=== PATIENT | female | born 1980 | race American Indian/Alaskan Native ===

== ENCOUNTER 2018-06-12 16:21 | Emergency (ER) | payer MEDICAID ==
[~2018-06-12] VITALS: Ht 177.8 cm; Wt 70.0 kg
[~2018-06-12 16:21] MED LIST: ACET-2119 PO; LACT1CAP26 PO; LEVO750T46 PO; PANT40TA4 PO
[2018-06-12 16:29] VITALS: BP 117/70
[2018-06-12] MEDS ORDERED: ACET-2119 PO (18:10)
[2018-06-12] MEDS ORDERED: ketorolac tromethamine 15mg/ml inj. IM ONE (18:10)
== END 2018-06-12 18:23 | disposition home or self-care (01) ==
LOC: ER 16:22
DX: S39.012A Strain of muscle, fascia and tendon of lower back, initial encounter (principal); G89.29 Other chronic pain; F12.90 Cannabis use, unspecified, uncomplicated; Z98.890 Other specified postprocedural states; Z88.1 Allergy status to other antibiotic agents; Z88.5 Allergy status to narcotic agent; Z79.899 Other long term (current) drug therapy; Z56.0 Unemployment, unspecified; X58.XXXA Exposure to other specified factors, initial encounter; Y93.89 Activity, other specified; Y92.89 Other specified places as the place of occurrence of the external cause; Y99.8 Other external cause status
CPT/HCPCS: 96372; 99283; J1885

== ENCOUNTER 2019-05-17 16:46 | Emergency (ER) | payer MEDICAID ==
[~2019-05-17] VITALS: Ht 175.3 cm; Wt 90.0 kg
[2019-05-17 16:51] VITALS: BP 121/84
[2019-05-17] MEDS ORDERED: IBUP-1984 PO (18:03)
[2019-05-17] MEDS ORDERED: DOXY100C43 PO (18:03)
== END 2019-05-17 18:27 | disposition home or self-care (01) ==
LOC: ER 16:47
DX: K04.7 Periapical abscess without sinus (principal); G89.29 Other chronic pain; F41.9 Anxiety disorder, unspecified; F10.99 Alcohol use, unspecified with unspecified alcohol-induced disorder; F12.90 Cannabis use, unspecified, uncomplicated; Z87.442 Personal history of urinary calculi; Z98.890 Other specified postprocedural states; Z56.0 Unemployment, unspecified; Z88.1 Allergy status to other antibiotic agents; Z79.899 Other long term (current) drug therapy; Y90.9 Presence of alcohol in blood, level not specified
CPT/HCPCS: 99283

== ENCOUNTER 2019-07-24 13:35 | Emergency (ER) | payer MEDICAID ==
[~2019-07-24] VITALS: Ht 180.3 cm; Wt 85.0 kg
[2019-07-24 13:43] VITALS: BP 108/69
[2019-07-24] MEDS ORDERED: LIDOcaine 1% W/epiNEPHrine 1:200,000 10ml vial IJ ONE (15:50)
[2019-07-24] MEDS ORDERED: ibuprofen tablet 400 MG TABLET PO ONE (15:55)
[2019-07-24] MEDS ORDERED: DOXY100C43 PO (16:28)
== END 2019-07-24 17:17 | disposition home or self-care (01) ==
LOC: ER 13:35
DX: L02.415 Cutaneous abscess of right lower limb (principal); G89.29 Other chronic pain; F41.9 Anxiety disorder, unspecified; F12.90 Cannabis use, unspecified, uncomplicated; Z72.89 Other problems related to lifestyle; Z87.442 Personal history of urinary calculi; Z98.890 Other specified postprocedural states; Z56.0 Unemployment, unspecified; Z88.1 Allergy status to other antibiotic agents; Z88.5 Allergy status to narcotic agent; Z79.899 Other long term (current) drug therapy
CPT/HCPCS: 10060; 99283

== ENCOUNTER 2020-10-15 12:01 | Emergency (ER) | payer MEDICAID ==
[~2020-10-15] VITALS: Ht 177.8 cm; Wt 81.8 kg
[~2020-10-15 12:01] MED LIST changes: -PANT40TA4 PO; +PANT40TA54 PO
[2020-10-15] MEDS ORDERED: ibuprofen tablet 400 MG TABLET PO ONE (13:35)
[2020-10-15 14:02] LABS: BASOPHILS # (AUTO) 0.1 X10'3 (0-0.2); BASOPHILS % (AUTO) 0.8 % (0-1); EOSINOPHILS # (AUTO) 0.3 X10'3 (0-0.9); EOSINOPHILS % (AUTO) 4.1 % (0-6); HEMATOCRIT 35.5 % (35.0-45.0); HEMOGLOBIN 11.5 g/dl (12.0-16.0); LYMPHOCYTES # (AUTO) 2.5 X10'3 (1.1-4.8); MEAN CORPUSCULAR HEMOGLOBIN 28.5 PG (27.0-31.0); MEAN CORPUSCULAR HGB CONC 32.4 g/dL (33.0-36.5); MEAN CORPUSCULAR VOLUME 87.9 FL (78-98); MEAN PLATELET VOLUME 7.6 FL (7.4-10.4); MONOCYTES # (AUTO) 0.5 X10'3 (0-0.9); MONOCYTES % (AUTO) 8.2 % (2-12); NEUTROPHILS # (AUTO) 3.2 X10'3 (1.8-7.7); NEUTROPHILS % (AUTO) 48.9 % (42-75); PLATELET COUNT 434 X10'3 (140-440); RED BLOOD COUNT 4.04 X10'6 (4.20-5.60); RED CELL DISTRIBUTION WIDTH 13.7 % (11.5-14.5); WHITE BLOOD COUNT 6.6 X10'3 (4.5-11.0)
[2020-10-15 14:16] LABS: ALANINE AMINOTRANSFERASE 19 U/L (12-78); ALBUMIN 3.1 G/DL (3.4-5.0); ALBUMIN/GLOBULIN RATIO 0.7 (1.1-1.5); ALKALINE PHOSPHATASE 132 IU/L (46-116); ANION GAP 8 (8-16); ASPARTATE AMINO TRANSFERASE 22 U/L (10-37); BILIRUBIN,TOTAL 0.2 MG/DL (0.1-1.0); BLOOD UREA NITROGEN 13 MG/DL (7-18); BUN/CREATININE RATIO 15.9 (6.6-38.0); C-REACTIVE PROTEIN 1.66 MG/DL (0.0-0.5); CALCIUM 8.6 MG/DL (8.5-10.1); CHLORIDE 104 MMOL/L (99-107); CREATININE 0.82 MG/DL (0.40-0.90); GLUCOSE 109 MG/DL (70-104); POTASSIUM 3.9 MMOL/L (3.5-5.1); SODIUM 139 MMOL/L (135-145); TOTAL CARBON DIOXIDE 27.4 MMOL/L (24-32); TOTAL PROTEIN 7.6 G/DL (6.4-8.2); eGFR 77 ML/MIN
[2020-10-15 14:59] VITALS: BP 109/72
[2020-10-15] MEDS ORDERED: SULF1TAB49 PO (15:10)
[2020-10-15] MEDS ORDERED: IBUP-1985 PO (15:10)
== END 2020-10-15 15:20 | disposition home or self-care (01) ==
LOC: ER 12:02
DX: M79.642 Pain in left hand (principal); R22.32 Localized swelling, mass and lump, left upper limb; G89.29 Other chronic pain; F41.9 Anxiety disorder, unspecified; F12.90 Cannabis use, unspecified, uncomplicated; Z87.442 Personal history of urinary calculi; Z72.89 Other problems related to lifestyle; Z56.0 Unemployment, unspecified; Z98.890 Other specified postprocedural states; Z88.1 Allergy status to other antibiotic agents; Z79.899 Other long term (current) drug therapy
CPT/HCPCS: 36415; 73130; 80053; 83605; 85025; 85651; 86140; 87040; 99284

== ENCOUNTER 2021-01-18 21:50 | Emergency (ER) | payer MEDICAID ==
[~2021-01-18] VITALS: Ht 177.8 cm; Wt 84.1 kg
[~2021-01-18 21:50] MED LIST changes: +IBUP-1985 PO
[2021-01-18 23:02] LABS: CLARITY,URINE CLEAR (Clear); COLOR,URINE YELLOW (Yellow); GLUCOSE, URINE NEGATIVE (Neg); KETONES,URINE NEGATIVE (Neg); LEUKOCYTE ESTERASE ,URINE NEGATIVE (Neg); NITRITES, URINE NEGATIVE (Neg); OCCULT BLOOD,URINE NEGATIVE (Neg); PH,URINE 5.5 (4.8-8.0); PROTEIN,URINE NEGATIVE (Neg); URINE HCG NEGATIVE (NEG); UROBILINOGEN,URINE 0.2 E.U/dL (0.2-1.0)
[2021-01-18 23:03] LABS: UA COLLECTION TYPE NON-SPECIFIED
[2021-01-19 00:46] VITALS: BP 101/45
[2021-01-19] MEDS ORDERED: CLOT45CR29 TOP (00:46)
[2021-01-19] MEDS ORDERED: DOXY100C76 PO (00:46)
== END 2021-01-19 01:40 | disposition home or self-care (01) ==
LOC: ER 21:50
DX: N89.8 Other specified noninflammatory disorders of vagina (principal); G89.29 Other chronic pain; F41.9 Anxiety disorder, unspecified; F12.90 Cannabis use, unspecified, uncomplicated; Z87.11 Personal history of peptic ulcer disease; Z87.442 Personal history of urinary calculi; Z98.890 Other specified postprocedural states; Z72.89 Other problems related to lifestyle; Z56.0 Unemployment, unspecified; Z88.1 Allergy status to other antibiotic agents; Z88.8 Allergy status to other drugs, medicaments and biological substances; Z79.2 Long term (current) use of antibiotics; Z79.899 Other long term (current) drug therapy
CPT/HCPCS: 36415; 81003; 81025; 87491; 99283

== ENCOUNTER 2022-02-11 10:21 | Inpatient (IN) | payer MEDICAID ==
[~2022-02-11] VITALS: Ht 177.8 cm; Wt 79.5 kg
[2022-02-11] VITALS (11 sets, daily range): BP systolic 121–154; BP diastolic 62–91
[~2022-02-11 10:21] MED LIST changes: +CLOT45CR29 TOP; -LEVO750T46 PO; +LEVO750T68 PO
[2022-02-11 12:51] LABS: ALANINE AMINOTRANSFERASE 25 U/L (12-78); ALBUMIN/GLOBULIN RATIO 0.9 (1.1-1.5); ALKALINE PHOSPHATASE 120 IU/L (46-116); ANION GAP 8 (8-16); ASPARTATE AMINO TRANSFERASE 29 U/L (10-37); BASOPHILS % (AUTO) 0.4 % (0-1); BILIRUBIN,TOTAL 0.5 MG/DL (0.1-1.0); BLOOD UREA NITROGEN 11 MG/DL (7-18); BUN/CREATININE RATIO 12.5 (6.6-38.0); CALCIUM 9.3 MG/DL (8.5-10.1); CHLORIDE 103 MMOL/L (99-107); CREATININE 0.88 MG/DL (0.40-0.90); EOSINOPHILS # (AUTO) 0.1 X10'3 (0-0.9); EOSINOPHILS % (AUTO) 0.7 % (0-6); GLUCOSE 115 MG/DL (70-104); HEMATOCRIT 39.8 % (35.0-45.0); HEMOGLOBIN 13.5 g/dl (12.0-16.0); LIPASE 62 U/L (73-393); LYMPHOCYTES % (AUTO) 10.4 % (21-51); MEAN CORPUSCULAR HEMOGLOBIN 30.1 PG (27.0-31.0); MEAN CORPUSCULAR HGB CONC 33.9 g/dL (33.0-36.5); MEAN CORPUSCULAR VOLUME 88.7 FL (78-98); MONOCYTES # (AUTO) 0.4 X10'3 (0-0.9); NEUTROPHILS # (AUTO) 7.7 X10'3 (1.8-7.7); NEUTROPHILS % (AUTO) 84.5 % (42-75); PLATELET COUNT 321 X10'3 (140-440); POTASSIUM 3.9 MMOL/L (3.5-5.1); RED BLOOD COUNT 4.49 X10'6 (4.20-5.60); RED CELL DISTRIBUTION WIDTH 13.5 % (11.5-14.5); SODIUM 138 MMOL/L (135-145); TOTAL CARBON DIOXIDE 27.1 MMOL/L (24-32); TOTAL PROTEIN 8.5 G/DL (6.4-8.2); WHITE BLOOD COUNT 9.2 X10'3 (4.5-11.0); eGFR 71 ML/MIN
[2022-02-11] MEDS ORDERED: ondansetron/PF 4mg/2ml inj IV ONE (14:05)
[2022-02-11] MEDS ORDERED: ketorolac trometh. 30mg/ml inj. IM ONE (14:05)
[2022-02-11] MEDS ORDERED: ringers solution, lactated 1000ml IV soln IV ONE (14:05)
[2022-02-11] MEDS ORDERED: LIDOcaine Viscous 15ml cup MM PRN (14:10)
[2022-02-11] MEDS ORDERED: mag hydrox/Alum hydrox/simeth 30ml oral suspension PO ONE (14:10)
[2022-02-11] MEDS ORDERED: famotidine/PF 10 mg/ml inj IV ONE (14:20)
[2022-02-11] MEDS: diatr meglu/diatrizoate 30ml oral sol.-(3 dose) bottle PO SCH ×3 (15:00→16:19)
[2022-02-11] MEDS ORDERED: iohexol 350MG/ML 100ml bottle IV ONE (15:40)
[2022-02-11] MEDS ORDERED: morphine 4 MG/ML inj SYRINge IV ONE (17:10)
[2022-02-11] MEDS ORDERED: CefTRIAXone/D5W-Rocephin 1gm 50 ML IV ONE (17:15)
[2022-02-11 18:25] LABS: BASOPHILS % (AUTO) 0.1 % (0-1); EOSINOPHILS % (AUTO) 0.1 % (0-6); HEMATOCRIT 38.4 % (35.0-45.0); HEMOGLOBIN 12.9 g/dl (12.0-16.0); LYMPHOCYTES # (AUTO) 0.8 X10'3 (1.1-4.8); LYMPHOCYTES % (AUTO) 5.9 % (21-51); MEAN CORPUSCULAR HEMOGLOBIN 29.7 PG (27.0-31.0); MEAN CORPUSCULAR HGB CONC 33.6 g/dL (33.0-36.5); MEAN CORPUSCULAR VOLUME 88.4 FL (78-98); MEAN PLATELET VOLUME 7.9 FL (7.4-10.4); MONOCYTES # (AUTO) 0.4 X10'3 (0-0.9); MONOCYTES % (AUTO) 3.2 % (2-12); NEUTROPHILS # (AUTO) 12.3 X10'3 (1.8-7.7); NEUTROPHILS % (AUTO) 90.7 % (42-75); PLATELET COUNT 298 X10'3 (140-440); RED BLOOD COUNT 4.34 X10'6 (4.20-5.60); RED CELL DISTRIBUTION WIDTH 13.5 % (11.5-14.5); WHITE BLOOD COUNT 13.6 X10'3 (4.5-11.0)
[2022-02-11] MEDS ORDERED: BUPIVAcaine/PF 2.5 mg/ml (0.25%) 30ml vial ONE (18:47)
[2022-02-11] MEDS ORDERED: proCHLORperazine 10 MG/2 ml inj IV PRN (18:50)
[2022-02-11] MEDS ORDERED: morphine 4 MG/ML inj SYRINge IV PRN (18:50)
[2022-02-11] MEDS ORDERED: morphine 2 MG/ML inj. syringe IV PRN (18:50)
[2022-02-11] MEDS ORDERED: ondansetron/PF 4mg/2ml inj IV PRN ×3 (18:50→20:50)
[2022-02-11] MEDS ORDERED: ringers solution, lacted 1,000 ML IV SCH (18:50)
[2022-02-11] MEDS ORDERED: meperidine/PF 25mg/ml syringe IV PRN ×3 (18:50)
[2022-02-11] MEDS ORDERED: POTASSIUM BICARB 20meq eff tab 20 MEQ TABLET.EFF PO PRN ×2 (18:55)
[2022-02-11] MEDS ORDERED: potassium CL 10mEq/100ml bag 100 ML IV PRN (18:55)
[2022-02-11] MEDS ORDERED: magnesium 2GM in 50ml NS 50 ML IV PRN (18:55)
[2022-02-11] MEDS ORDERED: acetaminophen 325mg tablet PO PRN (18:55)
[2022-02-11] MEDS ORDERED: magnesium hydroxide 30ml (MOM) UD suspension PO PRN (18:55)
[2022-02-11] MEDS ORDERED: magnesium 4gm in 100ml NS 100 ML IV PRN (18:55)
[2022-02-11] MEDS ORDERED: mag hydrox/Alum hydrox/simeth 30ml oral suspension PO PRN (18:55)
[2022-02-11] MEDS ORDERED: fentaNYL /PF 50mcg/ml 5ml ampule ONE (19:00)
[2022-02-11] MEDS: docusate sod 100mg capsule PO SCH (20:00)
[2022-02-11] MEDS: enoxaparin 40mg/0.4ml syringe SQ SCH (20:00)
[2022-02-11] MEDS: K and/or MAG REPLACEMENT MC SCH (20:00)
[2022-02-11] MEDS ORDERED: famotidine/PF IV inj 40 MG in normal saline 100ml IV soln 100 ML IV SCH (20:00)
[2022-02-11] MEDS ORDERED: dexamethasone sod phosphate 4mg/ml inj. ONE (20:21)
[2022-02-11] MEDS ORDERED: LIDOcaine 2% (20mg/ml) 5ml vial ONE (20:21)
[2022-02-11] MEDS ORDERED: rocuronium 10mg/ml inj IV ONE (20:21)
[2022-02-11] MEDS ORDERED: ondansetron/PF 4mg/2ml inj ONE (20:21)
[2022-02-11] MEDS ORDERED: neostigmine methylsulfate 1 MG/ML 10ml vial ONE (20:21)
[2022-02-11] MEDS ORDERED: glycopyrrolate 0.2mg/ml inj ONE (20:21)
[2022-02-11] MEDS ORDERED: propofol inj 20 ML IV ONE (20:21)
[2022-02-11] MEDS ORDERED: meperidine/PF 25mg/ml syringe ONE ×2 (20:25→20:36)
--- NOTE | 2022-02-11 20:43 | NUR ---
Received from OR via ORTHO BED , accompanied by Anesthesiologist BRISEYDA and report given by Anesthesiolgist. PATIENT WITH 4 ABDOMINAL BANDAIDS PRESENT THAT ARE ALL CDI CURRENTLY. VSS. 10L MASK ON WITH 100% SATURATIONS. 10L . 20GPIV IN LEFT NECK RUNNING LR AT 100. WARM BLANKETS APPLIED FOR PATIENT COMFORT. Addendum: 02/11/22 at 2100 by Johann Barros RN, RN Amended: Links added.
[2022-02-11] MEDS ORDERED: sugammadex 200mg/2ml injection IV ONE (20:46)
[2022-02-11] MEDS ORDERED: naloxone 0.4 mg/ml inj IV PRN (20:50)
--- NOTE | 2022-02-11 21:43 | NUR ---
TRANSFER: CARE OF PATIENT AND REPORT HAS BEEN CALLED. ALL QUESTIONS ANSWERED TO ACCEPTING RN. PATIENT HAS MET ALL CRITERIA FOR TRANSFER TO THE [facility]. VSS. DRESSINGS INTACT. BED LOW, CALL LIGHT PRESENT AND 2 RAILS UP. RIOS GERARD PRESENT TO ACCEPT ASSIST IN SET UP AND TO PERFORM HER ASSESSMENT ON THIS PATIENT. CARE TURNED OVER. ONE BLUE BLANKET PLACED IN ROOM WELL. Addendum: 02/11/22 at 2150 by Johann Muhammad - RIOS NATION Amended: Links added.
[2022-02-11] MEDS ORDERED: METH-603 PO (22:23)
[2022-02-12] VITALS (8 sets, daily range): BP systolic 88–127; BP diastolic 47–74
[2022-02-12] MEDS: metroNIDAZOLE-Flagyl 500mg/NS 100 ML IV SCH ×4 (00:03→23:46)
[2022-02-12] MEDS: normal saline 1000ml 1,000 ML IV SCH ×3 (00:09→15:53)
[2022-02-12] MEDS: HYDROcodone/acetaminophen 10/325mg tab PO PRN ×4 (02:07→23:47)
[2022-02-12] MEDS: ketorolac trometh. 30mg/ml inj. IV PRN ×3 (04:28→19:17)
[2022-02-12 05:03] LABS: URINE AMPHETAMINE SCREEN POSITIVE (Neg); URINE BARBITUATE SCREEN NEGATIVE (Neg); URINE BENZODIAZEPINES SCREEN NEGATIVE (Neg); URINE CANNABINOID SCREEN POSITIVE (Neg); URINE COCAINE SCREEN NEGATIVE (Neg); URINE METHADONE SCREEN POSITIVE (Neg); URINE OPIATE SCREEN POSITIVE (Neg); URINE PHENCYCLIDINE SCREEN NEGATIVE (Neg)
[2022-02-12 05:07] LABS: CLARITY,URINE CLEAR (Clear); GLUCOSE, URINE NEGATIVE (Neg); KETONES,URINE 15 mg/dl (Neg); LEUKOCYTE ESTERASE ,URINE NEGATIVE (Neg); NITRITES, URINE NEGATIVE (Neg); OCCULT BLOOD,URINE SMALL (Neg); PH,URINE 6.5 (4.8-8.0); PROTEIN,URINE TRACE mg/dl (Neg)
[2022-02-12 05:11] LABS: UA COLLECTION TYPE FOLEY CATH
[2022-02-12 05:12] LABS: COLOR,URINE AMBER (Yellow)
[2022-02-12 05:15] LABS: MUCUS STRANDS MODERATE /LPF (Neg); SQUAMOUS EPITHELIAL CELL,UR FEW /LPF (FEW)
[2022-02-12 05:16] LABS: BACTERIA,URINE NONE SEEN /HPF (Neg); WBC,URINE 0-4 /HPF (0-4)
--- NOTE | 2022-02-12 06:43 | NUR ---
Problems reprioritized. Patient report given, questions answered & plan of care reviewed with RIOS MOYA.
--- NOTE | 2022-02-12 07:03 | NUR ---
Patient in room ORTHO 4013. I have received report from laura NATION and had the opportunity to ask questions and assume patient care.
[2022-02-12 07:11] LABS: BASOPHILS % (AUTO) 0.1 % (0-1); EOSINOPHILS % (AUTO) 0 % (0-6); HEMOGLOBIN 10.9 g/dl (12.0-16.0); LYMPHOCYTES # (AUTO) 0.5 X10'3 (1.1-4.8); LYMPHOCYTES % (AUTO) 3.7 % (21-51); MEAN CORPUSCULAR HEMOGLOBIN 30.1 PG (27.0-31.0); MEAN CORPUSCULAR HGB CONC 34.1 g/dL (33.0-36.5); MEAN CORPUSCULAR VOLUME 88.4 FL (78-98); MONOCYTES # (AUTO) 0.5 X10'3 (0-0.9); MONOCYTES % (AUTO) 3.7 % (2-12); NEUTROPHILS # (AUTO) 13.6 X10'3 (1.8-7.7); NEUTROPHILS % (AUTO) 92.5 % (42-75); PLATELET COUNT 265 X10'3 (140-440); RED BLOOD COUNT 3.62 X10'6 (4.20-5.60); RED CELL DISTRIBUTION WIDTH 13.6 % (11.5-14.5); WHITE BLOOD COUNT 14.7 X10'3 (4.5-11.0)
[2022-02-12 07:30] LABS: ALANINE AMINOTRANSFERASE 27 U/L (12-78); ALBUMIN 2.8 G/DL (3.4-5.0); ALBUMIN/GLOBULIN RATIO 0.8 (1.1-1.5); ALKALINE PHOSPHATASE 86 IU/L (46-116); ANION GAP 9 (8-16); ASPARTATE AMINO TRANSFERASE 33 U/L (10-37); BILIRUBIN,TOTAL 0.5 MG/DL (0.1-1.0); BLOOD UREA NITROGEN 10 MG/DL (7-18); BUN/CREATININE RATIO 13.5 (6.6-38.0); CALCIUM 7.9 MG/DL (8.5-10.1); CHLORIDE 106 MMOL/L (99-107); CREATININE 0.74 MG/DL (0.40-0.90); GLUCOSE 132 MG/DL (70-104); MAGNESIUM 1.6 MG/DL (1.5-2.4); SODIUM 139 MMOL/L (135-145); TOTAL CARBON DIOXIDE 23.7 MMOL/L (24-32); TOTAL PROTEIN 6.2 G/DL (6.4-8.2); eGFR 86 ML/MIN
[2022-02-12] MEDS: docusate sod 100mg capsule PO SCH ×2 (07:42→19:16)
[2022-02-12] MEDS: nicotine 21mg patch - 24 hr TD SCH (07:43)
[2022-02-12] MEDS: K and/or MAG REPLACEMENT MC SCH ×2 (08:00→20:00)
--- NOTE | 2022-02-12 09:39 | NUR ---
PATIENT STATES SHE TAKES METHADONE 100MG AT [facility]. LAST DOSE PER PT WAS 2 DAYS AGO. CALLED CLINIC AND VERIFIED LAST DOSE WAS 100MG ON 02/10. PAGE SENT TO DR NORRIS FOR MED RECONCILIATION.
--- NOTE | 2022-02-12 12:31 | NUR ---
patient given incentive spirometer. Educated and encouraged to use 10x/hr. Verbalized understanding. Will continue to monitor.
[2022-02-12] MEDS: methadone 10mg tablet PO SCH (13:47)
[2022-02-12] MEDS ORDERED: DOL10T PO (16:57)
--- NOTE | 2022-02-12 17:31 | NUR ---
patient was medicated with methadone see EMAR. Ambulating in hallway increased to full lqd diet and advance as tolerated per Dr andre.
--- NOTE | 2022-02-12 17:45 | NUR ---
patient very pleasant throughout shift. tolerating clear liquid diet without issues. advanced to full liquid diet for dinner per order. denies nausea. ambulated around the unit twice today. encouraged to use incentive spirometer. pain controlled with prn per orders. urinated in toilet x 4 today. visiting most of day.
[2022-02-12] MEDS ORDERED: CefTRIAXone/D5W-Rocephin 1gm 50 ML IV SCH (18:00)
--- NOTE | 2022-02-12 18:21 | NUR ---
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
[2022-02-12] MEDS: enoxaparin 40mg/0.4ml syringe SQ SCH (19:16)
[2022-02-13] MEDS: normal saline 1000ml 1,000 ML IV SCH ×2 (04:15→10:55)
[2022-02-13] MEDS: ketorolac trometh. 30mg/ml inj. IV PRN ×2 (04:38→14:16)
[2022-02-13 06:12] LABS: BASOPHILS % (AUTO) 0.4 % (0-1); EOSINOPHILS % (AUTO) 0.7 % (0-6); HEMATOCRIT 28.1 % (35.0-45.0); HEMOGLOBIN 9.3 g/dl (12.0-16.0); LYMPHOCYTES # (AUTO) 1.5 X10'3 (1.1-4.8); LYMPHOCYTES % (AUTO) 22.5 % (21-51); MEAN CORPUSCULAR HEMOGLOBIN 29.8 PG (27.0-31.0); MEAN CORPUSCULAR VOLUME 90.1 FL (78-98); MEAN PLATELET VOLUME 8.3 FL (7.4-10.4); MONOCYTES # (AUTO) 0.6 X10'3 (0-0.9); MONOCYTES % (AUTO) 8.4 % (2-12); NEUTROPHILS # (AUTO) 4.6 X10'3 (1.8-7.7); PLATELET COUNT 198 X10'3 (140-440); RED BLOOD COUNT 3.12 X10'6 (4.20-5.60); RED CELL DISTRIBUTION WIDTH 13.8 % (11.5-14.5); WHITE BLOOD COUNT 6.8 X10'3 (4.5-11.0)
--- NOTE | 2022-02-13 06:47 | NUR ---
Problems reprioritized. Patient report given, questions answered & plan of care reviewed with RIOS CALDERON.
[2022-02-13 06:56] LABS: ALANINE AMINOTRANSFERASE 23 U/L (12-78); ALBUMIN 2.5 G/DL (3.4-5.0); ALBUMIN/GLOBULIN RATIO 0.8 (1.1-1.5); ALKALINE PHOSPHATASE 69 IU/L (46-116); ANION GAP 11 (8-16); ASPARTATE AMINO TRANSFERASE 26 U/L (10-37); BILIRUBIN,TOTAL 0.3 MG/DL (0.1-1.0); BLOOD UREA NITROGEN 11 MG/DL (7-18); BUN/CREATININE RATIO 16.2 (6.6-38.0); CALCIUM 7.8 MG/DL (8.5-10.1); CHLORIDE 110 MMOL/L (99-107); CREATININE 0.68 MG/DL (0.40-0.90); GLUCOSE 88 MG/DL (70-104); MAGNESIUM 1.9 MG/DL (1.5-2.4); POTASSIUM 3.8 MMOL/L (3.5-5.1); SODIUM 143 MMOL/L (135-145); TOTAL CARBON DIOXIDE 22.1 MMOL/L (24-32); TOTAL PROTEIN 5.7 G/DL (6.4-8.2); eGFR > 90 ML/MIN
[2022-02-13 07:30] VITALS: BP 121/57
[2022-02-13] MEDS: K and/or MAG REPLACEMENT MC SCH (08:00)
[2022-02-13] MEDS: nicotine 21mg patch - 24 hr TD SCH (08:24)
[2022-02-13] MEDS: methadone 10mg tablet PO SCH (08:24)
[2022-02-13] MEDS: docusate sod 100mg capsule PO SCH (08:24)
[2022-02-13] MEDS: metroNIDAZOLE-Flagyl 500mg/NS 100 ML IV SCH (08:26)
[2022-02-13] MEDS: HYDROcodone/acetaminophen 10/325mg tab PO PRN (10:34)
[2022-02-13 10:48] VITALS: BP 144/78
[2022-02-13] MEDS ORDERED: NICO-687 TD (11:14)
[2022-02-13] MEDS ORDERED: KETO10TA2 PO (11:14)
--- NOTE | 2022-02-13 15:40 | NUR ---
Patient stable and appropriate for discharge home with SO. IV removed, all belongings taken from room. New RX e-scripted to preferred pharmacy. All discharge instructions and education given and reviewed with patient, all questions answered.
== END 2022-02-13 15:40 | disposition home or self-care (01) | DRG 263 ==
LOC: ER 10:22 → ED HOLD 19:03 → ORTHO 4S 21:49
PROVIDERS: ADMIT Family Medicine; ATTEND Family Medicine
PROC: 0DNW4ZZ Release Peritoneum, Percutaneous Endoscopic Approach (ICD-10-PCS; 2022-02-11)
PROC: BW211ZZ Computerized Tomography (CT Scan) of Abdomen and Pelvis using Low Osmolar Contrast (ICD-10-PCS; 2022-02-11)
PROC: 0FT44ZZ Resection of Gallbladder, Percutaneous Endoscopic Approach (ICD-10-PCS; principal; 2022-02-11 19:05)
DX: K81.0 Acute cholecystitis (principal); D72.829 Elevated white blood cell count, unspecified; F11.90 Opioid use, unspecified, uncomplicated; F17.210 Nicotine dependence, cigarettes, uncomplicated; F43.10 Post-traumatic stress disorder, unspecified; Z20.822 Contact with and (suspected) exposure to COVID-19; M54.9 Dorsalgia, unspecified; G89.29 Other chronic pain; K66.0 Peritoneal adhesions (postprocedural) (postinfection); Z87.11 Personal history of peptic ulcer disease; Z87.442 Personal history of urinary calculi; Z98.891 History of uterine scar from previous surgery; Z88.1 Allergy status to other antibiotic agents; Z88.8 Allergy status to other drugs, medicaments and biological substances; Z56.0 Unemployment, unspecified; Z79.899 Other long term (current) drug therapy
CPT/HCPCS: 36415; 74177; 80053; 80305; 81001; 83605; 83690; 83735; 84145; 84484; 85025; 87040; 87081; 87811; 93005; 96372; 96374; 96375; 99285; A4215; A4314; A4618; A7000; G0378; J0696; J1100; J1650; J1885; J2175; J2270; J2405; J2704; J2710; J3010; J3490; J7030; J7120; Q9967

== ENCOUNTER 2023-01-30 01:37 | Emergency (ER) | payer MEDICAID ==
[~2023-01-30] VITALS: Ht 179.1 cm; Wt 84.8 kg
[~2023-01-30 01:37] MED LIST changes: -ACET-2119 PO; -CLOT45CR29 TOP; +DOL10T PO; -IBUP-1985 PO; +KETO10TA2 PO; -LACT1CAP26 PO; -LEVO750T68 PO; +NICO-687 TD; -PANT40TA54 PO
[2023-01-30 01:57] VITALS: BP 107/74; PULSE 73; RESP 16; TEMP 97.9; O2SAT 100
[2023-01-30] MEDS ORDERED: SULF1TAB49 PO (03:23)
[2023-01-30] MEDS ORDERED: sulfamethoxazole/trimethoprim DS (800/160mg) tablet PO ONE (03:25)
[2023-01-30] MEDS ORDERED: ibuprofen 200mg tablet PO ONE (03:25)
[2023-01-30] MEDS ORDERED: ondansetron 4mg rapidly disintigrating tab PO ONE (03:25)
== END 2023-01-30 03:47 | disposition home or self-care (01) ==
LOC: ER 01:38
DX: L03.011 Cellulitis of right finger (principal); G89.29 Other chronic pain; M54.9 Dorsalgia, unspecified; F41.9 Anxiety disorder, unspecified; Z87.442 Personal history of urinary calculi; F12.10 Cannabis abuse, uncomplicated; Z56.0 Unemployment, unspecified; Z88.0 Allergy status to penicillin; Z88.1 Allergy status to other antibiotic agents; Z88.5 Allergy status to narcotic agent; Z79.899 Other long term (current) drug therapy
CPT/HCPCS: 73140; 99284

== ENCOUNTER 2024-05-20 14:39 | Emergency (ER) | payer MEDICAID ==
[~2024-05-20] VITALS: Ht 177.8 cm; Wt 77.3 kg
[2024-05-20 14:46] VITALS: TEMP 99.5
[2024-05-20 16:58] VITALS: BP 106/77; PULSE 63; O2SAT 100
[2024-05-20] MEDS: LIDOcaine 1% W/epiNEPHrine 1:100,000 20ml vial SQ ONE (17:30)
[2024-05-20] MEDS: sulfamethoxazole/trimethoprim DS (800/160mg) tablet PO ONE (18:07)
[2024-05-20] MEDS: ketorolac trometh 15mg/ml vial 15 MG/ML ML IM ONE (18:08)
[2024-05-20 18:23] VITALS: RESP 16
[2024-05-20] MEDS ORDERED: SULF1TAB49 PO (19:12)
== END 2024-05-20 20:09 | disposition home or self-care (01) ==
LOC: ER 14:40
DX: L02.511 Cutaneous abscess of right hand (principal); G89.29 Other chronic pain; Z88.0 Allergy status to penicillin; Z88.5 Allergy status to narcotic agent; Z87.11 Personal history of peptic ulcer disease; Z98.890 Other specified postprocedural states
CPT/HCPCS: 10060; 73130; 96372; 99283; A6407; J1885; A6258; A6449

== ENCOUNTER 2024-05-23 17:30 | Emergency (ER) | payer MEDICAID ==
[~2024-05-23] VITALS: Ht 177.8 cm; Wt 82.3 kg
[~2024-05-23 17:30] MED LIST changes: +SULF1TAB49 PO
[2024-05-23 17:31] VITALS: BP 144/83; PULSE 104; RESP 16; O2SAT 98
[2024-05-23 17:49] VITALS: TEMP 98.3
== END 2024-05-23 17:53 | disposition home or self-care (01) ==
LOC: ER 17:31
DX: Z48.00 Encounter for change or removal of nonsurgical wound dressing (principal); G89.29 Other chronic pain; M54.9 Dorsalgia, unspecified; Z87.442 Personal history of urinary calculi; F41.9 Anxiety disorder, unspecified; F12.90 Cannabis use, unspecified, uncomplicated; Z88.5 Allergy status to narcotic agent; Z88.1 Allergy status to other antibiotic agents; Z79.899 Other long term (current) drug therapy; Z56.0 Unemployment, unspecified
CPT/HCPCS: 99281

== ENCOUNTER 2025-02-24 18:36 | Emergency (ER) | payer MEDICAID ==
[~2025-02-24] VITALS: Ht 177.8 cm; Wt 97.7 kg
[~2025-02-24 18:36] MED LIST changes: -SULF1TAB49 PO
[2025-02-24 19:00] VITALS: BP 127/77; PULSE 95; RESP 20; TEMP 97.9; O2SAT 100
--- NOTE | 2025-02-26 19:45 | Physician Documentation ---
History of Present Illness ~ Chief Complaint: Abrasion Stated Complaint: INFECTED WOUND ON FINGER Time Seen by MD: 21:24 Primary Medical Doctor: AURELIANO SANCHEZ HPI Patient left before examination results. Medication Reconciliation Allergies: Coded Allergies: amoxicillin (Unverified Allergy, Severe, HIVES, 05/20/24) Erythromycin Lactobionate (Unverified Allergy, Unknown, 05/20/24) hydromorphone (Verified Adverse Reaction, Unknown, 05/20/24) HALLUCINATIONS Scheduled Methadone Hcl (Dolophine), 100 MG PO DAILY, (Reported) Nicotine 21 MG Patch* (Habitrol 21 MG Patch*), 1 PATCH TD DAILY Scheduled PRN Ketorolac Tromethamine (Ketorolac Tromethamine), 1 TAB PO Q8H PRN for moderate pain 4-6 Past Medical History Past Medical History: Bronchitis, Peptic Ulcer Disease, Kidney Stones, Chronic Pain, Chronic Back Pain, *INFECTIOUS DZ*, *PSYCH*, Anxiety Past Surgical History: , orthopedic surgeries Other Past Surgical History: epidural injections in the low spine Patient History: Patient reports no known family medical history. Other Past Family History: none Smoking Status: Unknown if ever smoked Alcohol Use: Sober Drug Use: marijuana Lives with: Family Lives In: Home Occupation: unemployed Review of Systems ROS As stated above in the HPI, otherwise all systems are reviewed and negative. Physical Exam Vital Signs: Temperature: 97.9, Heart Rate: 95, Respiratory Rate: 20, BP: 127/77, Pulse Oximetry: 100, Weight: 97.700 Oxygen Flow Rate: 0 Physical Exam VITALS: Reviewed and as above. GENERAL: Alert, no apparent distress. HEENT: Normocephalic, atraumatic, PERRL, EOMI, dry mucosa, no erythema RESPIRATORY: Lungs clear, normal breath sounds, no respiratory distress. CHEST: No accessory muscle use, no retractions CV: Regular rate, rhythm, no edema, no murmur, No: JVD GI: Soft, non-tender, bowels sounds present, no rebound, guarding, or rigidity BACK: No CVA tenderness, or swelling MUSCULOSKELETAL No deformities, no edema SKIN: Warm and dry, area of erthema and swelling to finger. NEURO: Oriented x4, No motor or sensory deficit PSYCH: Normal mood and affect, no agitation Progress Results/Orders Results/Orders Vital Signs 02/24/25 19:00 Temp 97.9 Pulse 95 Resp 20 B/P (MAP) 127/77 Pulse Ox 100 O2 Flow Rate 0 Medical Decision Making Findings Patient left before examination results. Differential Dx:Considerations: Include: Abscess, AIDS/HIV, Anthrax (cutaneous), Atopic dermatitis, Candidiasis, Contact dermatitis, Drug reaction, Erythema multiforme, Erysipelas, Gangrene, Herpes zoster, Herpes simplex, Hidradenitis suppurativa, Impetigo, Intertrigo, Lymes disease, Molluscum contagiosum, Osteomyelitis, Pediculosis, Pityriasis rosea, Psoriaisis, RMSF, Rosacea, Scabies, Scarlet fever, Tinea, Urticaria, Varicella, Viral exanthema, Other Departure Disposition: 07 LEFT AWOL/ELOPED Impression: Primary Impression: Wound Condition: Stable Discharge Instructions: Abrasion, [id number] Additional Instructions: Patient left before receiving examination results. Referrals: NO PRIMARY CARE PROVIDER (PCP) Signature Scribe Signature: A Attestation: Scribed for Fela Carolina by JULIUS Ordonez . 02/26/25 19:45 FELA CAROLINA Feb 26, 2025 19:45
== END 2025-02-24 21:59 | disposition left against medical advice (07) ==
LOC: ER 18:37
DX: L08.9 Local infection of the skin and subcutaneous tissue, unspecified (principal); Z88.1 Allergy status to other antibiotic agents; Z88.5 Allergy status to narcotic agent; Z53.21 Procedure and treatment not carried out due to patient leaving prior to being seen by health care provider